=== PATIENT | male | born 1960 | race Caucasian/White ===

== ENCOUNTER 2022-12-29 12:20 | Inpatient (IN) | payer BC, MEDICARE ==
[2022-12-29 13:01] LABS: #Eosinphils 0.1 thou/uL (0.0-0.7); #Lymphocytes 1.6 thou/uL (1.20-3.40); #Monocytes 0.6 thou/uL (0.11-0.59); #Neutrophils 6.9 thou/uL (1.40-6.50); %Basophils 0.5 % (0.0-1.0); %Eosinophils 1.6 % (0.0-10.0); %Lymphocytes 16.8 % (21.0-51.0); %Neutrophils 75.1 % (42.0-75.0); Hemoglobin 15.1 g/dL (14.0-18.0); Mean Corpuscular HGB CONC 31.6 g/dL (32.0-36.0); Mean Corpuscular Hemoglobin 29.6 pg (27.0-31.0); Mean Corpuscular Volume 93.7 fl (78.0-98.0); Mean Platelet Volume 7.1 fL (7.4-10.4); Platelet Count 338 10x3/uL (130-400); RBC Distribution Width 12.4 % (11.5-14.5); White Blood Cell (WBC) Count 9.2 10x3/uL (4.8-10.8)
[2022-12-29 13:20] LABS: Anion Gap 14 mmol/L (10-20); BUN (Urea Nitrogen) 13 mg/dL (8.4-25.7); Calc. Creatinine Clearance 0 mL/min (70-130); Carbon Dioxide 24 mmol/L (23-31); Chloride 104 mmol/L (98-107); Potassium 3.9 mmol/L (3.5-5.1); Sodium 138 mmol/L (136-145)
[2022-12-29 13:21] LABS: ALT (SGPT) 11 U/L (8-55); AST (SGOT) 12 U/L (5-34); Albumin 4.9 g/dL (3.4-4.8); Alkaline Phosphatase 91 U/L (40-110); Bilirubin, Total 0.5 mg/dL (0.2-1.2); Calcium 10.5 mg/dL (7.8-10.44); Estimated GFR 98; Globulin 3.1 g/dL (2.4-3.5); Glucose 112 mg/dL (80-115)
[2022-12-29] MEDS ORDERED: Ketorolac Tromethamine 30 MG/ML VIAL ONE (13:46)
[2022-12-29] MEDS ORDERED: Metoclopramide HCl 10 MG/2 ML VIAL ONE (13:46)
[2022-12-29] MEDS ORDERED: diphenhydrAMINE 50 MG/ML VIAL ONE (13:46)
[2022-12-29] MEDS ORDERED: Ondansetron ODT 4 MG TAB PO PRN (16:07)
[2022-12-29 18:31] VITALS: BMI 28.3
[2022-12-29] MEDS ORDERED: carBAMazepine 100 mg Chewable Tablet PO SCH (19:15)
[2022-12-29] MEDS: Zolpidem Tartrate 5 MG TAB PO SCH (20:55)
[2022-12-29] MEDS: Acetaminophen 325 MG TAB PO PRN (20:56)
[2022-12-30] MEDS: Ketorolac Tromethamine 30 MG/ML VIAL IVP SCH ×4 (00:24→18:09)
[2022-12-30] MEDS: Acetaminophen 325 MG TAB PO PRN ×2 (04:23→20:30)
[2022-12-30] MEDS ORDERED: Lactated Ringer's 1,000 ML IV SCH (08:00)
[2022-12-30] MEDS ORDERED: AMITRIPTYLINE HCL 150 MG PO SCH (09:00)
[2022-12-30] MEDS ORDERED: Losartan 25 MG TAB PO SCH (09:00)
[2022-12-30] MEDS: carBAMazepine 100 mg Chewable Tablet PO SCH ×2 (09:19→17:30)
[2022-12-30] MEDS ORDERED: Lorazepam 0.5 MG TAB PO SCH (12:00)
[2022-12-30 13:15] LABS: Amphetamine Not Detected (NotDetected); Barbiturates Screen Not Detected (NotDetected); Benzodiazepine Screen Not Detected (NotDetected); Cocaine Metabolite Screen Not Detected (NotDetected); Methadone Not Detected (NotDetected); Methamphetamine Not Detected (NotDetected); Opiate Screen Not Detected (NotDetected); Oxycodone Screen Not Detected (NotDetected); Phencyclidine (PCP) Not Detected (NotDetected); THC/Cannabinoid Screen Detected (NotDetected); Tricyclic Screen Detected (NotDetected)
[2022-12-30] MEDS: Zolpidem Tartrate 5 MG TAB PO SCH (20:30)
[2022-12-31] MEDS ORDERED: Melatonin 3 MG TAB PO PRN (01:44)
[2022-12-31] MEDS: Ketorolac Tromethamine 30 MG/ML VIAL IVP SCH ×2 (03:09→05:41)
[2022-12-31] MEDS: Acetaminophen 325 MG TAB PO PRN (05:42)
[2022-12-31] MEDS: carBAMazepine 100 mg Chewable Tablet PO SCH (08:39)
[2022-12-31] MEDS ORDERED: Magnevist 469MG/ML 20 ML VIAL ONE (08:56)
[2022-12-31] MEDS ORDERED: Lorazepam 0.5 MG TAB PO SCH (10:15)
[2022-12-31] MEDS ORDERED: diphenhydrAMINE 50 MG/ML VIAL IVP PRN (12:43)
[2022-12-31] MEDS ORDERED: Prochlorperazine Edisylate 10 MG in Sodium Chloride 0.9% 50 ML IVPB PRN (12:43)
[2022-12-31] MEDS ORDERED: carBAMazepine 100 mg Chewable Tablet PO SCH (12:45)
[2022-12-31 16:09] VITALS: BP 116/74; TEMP 97.8
[2022-12-31] MEDS ORDERED: carBAMazepine 200 MG TAB PO SCH (17:00)
== END 2022-12-31 19:00 | disposition home or self-care (01) | DRG 74 ==
LOC: ERS 12:20 → ERHOLD 15:46 → NEURO 18:03 → OBSVTOIN 12-31 15:20
PROVIDERS: ADMIT Student in an Organized Health Care Education/Training Program; ATTEND Student in an Organized Health Care Education/Training Program
DX: G50.0 Trigeminal neuralgia (principal); F19.20 Other psychoactive substance dependence, uncomplicated; K21.9 Gastro-esophageal reflux disease without esophagitis; I10 Essential (primary) hypertension; F17.210 Nicotine dependence, cigarettes, uncomplicated; B18.2 Chronic viral hepatitis C; Z85.46 Personal history of malignant neoplasm of prostate; Z88.5 Allergy status to narcotic agent; Z88.2 Allergy status to sulfonamides; Z88.8 Allergy status to other drugs, medicaments and biological substances; Z79.899 Other long term (current) drug therapy; Z79.82 Long term (current) use of aspirin; Z98.890 Other specified postprocedural states
CPT/HCPCS: 36415; 36416; 70450; 70553; 80053; 80306; 85025; 85652; 96372; 96376; A9579; G0378; J1200; J1650; J1885; J2765; J7120